=== PATIENT | female | born 1965 | race Caucasian/White ===

== ENCOUNTER 2024-03-30 06:18 | Emergency (ER) | payer SELFPAY ==
--- NOTE | ~2024-03-30 | XR_ITS ---
XR finger 2nd RT min 2V Ordering provider: Nena Romero PA-C History: . dog bite, best obtainable imgs due to pt condition . Comparison: None. FINDINGS: BONES: No definite acute fracture or dislocation. Possibility of chip fracture along the dorsal aspec t of the middle phalanx base cannot be excluded. JOINT SPACES: Normal. SOFT TISSUES: Soft tissue swelling is seen in the second finger and in the thenar eminence area. IMPRESSION: No definite acute osseous abnormality. Possibility of chip fracture in the base of the middle phalanx posteriorly cannot be excluded. Soft tissue swelling over the second finger and in the area of the thenar eminence which may indicate cellulitis. Follow-up advised. Reviewed, dictated and finalized at location A. [facility] IMPRESSION: No definite acute osseous abnormality. Possibility of chip fracture in the base of the middle phalanx posteriorly cannot be excluded. Soft tissue swelling over the second finger and in the area of the thenar emine nce which may indicate cellulitis. Follow-up advised.
[2024-03-30 06:22] VITALS: BP 191/97; PULSE 83; RESP 17; TEMP 36.6; O2SAT 100
[2024-03-30 07:50] VITALS: BP 152/108; PULSE 71; RESP 15; O2SAT 100
--- NOTE | 2024-03-30 09:21 | ED.ANIMALBIT ---
HPI - Animal Bite General Chief Complaint: Animal Bite Stated Complaint: dog bite to R index finger Time Seen by Provider: 03/30/24 09:09 Source: patient Mode of arrival: ambulatory Limitations: no limitations History of Present Illness HPI narrative: This is a 59-year-old female that presents to the emergency department after a dog bite 2 days ago. Reports the dog is up-to-date on its vaccinations. She is unsure of her last tetanus vaccination. Sustained a dog bite to her right index finger. Reports swelling and pain to the area. She has been taking tqlz-yop-[id number] medications with little relief. Denies fevers or abnormal drainage. Related Data Allergies Allergy/AdvReac Type Severity Reaction Status Date / Time No Known Allergies Allergy Verified 03/30/24 07:55 Review of Systems Review of Systems: CONSTITUTIONAL: Denies fever SKIN: Reports laceration NEUROLOGIC: Denies numbness All systems reviewed & are unremarkable except as noted in HPI and below PMFSH Past Medical History Medical History (Updated 03/30/24 @ 10:39 by Nena Romero PA-C) No active medical problems Family History Family History (System 06/03/21 @ 10:24 by Mani Larsen) Other Family history of coronary artery disease Hypertension Social History Social History (System 06/03/21 @ 10:24 by Mani Larsen) Smoking status: Never smoker Alcohol intake: current Exam Narrative: GENERAL: Well-appearing, well-nourished, and in no acute distress. HEAD: Normocephalic, atraumatic. EYES: EOMI. EXTREMITIES: Mild edema about the right index finger with decreased ROM due to pain. Small puncture wound without abnormal drainage or surrounding redness. SKIN: Warm, dry, no rash. NEURO: No focal deficits. Alert and oriented x3. PSYCH: Normal mood and affect Course Course Emergency Course: patient agrees with plan of care Vital Signs Vital signs: Vital Signs Temperature 97.8 F 03/30/24 06:22 Pulse Rate 83 03/30/24 06:22 Respiratory Rate 17 03/30/24 06:22 Blood Pressure 191/97 H 03/30/24 06:22 Pulse Oximetry 100 03/30/24 06:22 Oxygen Delivery Room Air 03/30/24 06:22 Temperature 97.8 F 03/30/24 06:22 Pulse Rate 74 03/30/24 09:43 Respiratory Rate 16 03/30/24 09:43 Blood Pressure 151/87 H 03/30/24 09:43 Pulse Oximetry 97 03/30/24 09:43 Oxygen Delivery Room Air 03/30/24 06:22 MDM - Animal Bite MDM Narrative Medical decision making narrative: Patient presents to the emergency department after a dog bite 2 days ago with pain and swelling. She is afebrile and nontoxic appearing. Mildly decreased range of motion, likely due to pain. Small puncture wound noted without any abnormal drainage. There is no erythema of the finger. X-ray shows a possible chip fracture. Patient would not allow me to put in a finger splint. Her wound was bandaged. Given information for follow-up with Hand surgery. She was given warnings to return to the ER Differential Diagnosis Differential diagnosis: Likely dog bite and other (cellulitis) Imaging Data Radiologist's impression: ITS Impressions Finger X-Ray 03/30/24 09:43 IMPRESSION: No definite acute osseous abnormality. Possibility of chip fracture in the base of the middle phalanx posteriorly cannot be excluded. Soft tissue swelling over the second finger and in the area of the thenar eminence which may indicate cellulitis. Follow-up advised. Critical Care Time Critical Care Time Critical Care Time: No Discharge Plan Discharge Clinical Impression: Dog bite Patient Disposition: Home, Self-Care Condition: Stable Instructions: Antibiotic Form, Animal Bite (ED) Additional Instructions: Return to the emergency department if you experience fever, redness or swelling of your wound, abnormal drainage from your wound, or any other symptoms that are concerning to you. Apply antibiotic ointment daily. Do not soak the wound. Clean with mild soap and water daily. Take oral antibiotics as prescribed Follow-up with primary care doctor and hand surgery Patient Language: Indonesian Prescriptions: New amoxicillin-pot clavulanate 875-125 mg tablet 1 tablet PO Q12H 10 Days Qty: 20 0RF hydrocodone-acetaminophen 5-325 mg tablet 1 tablet PO Q6H PRN (Reason: pain) Qty: 14 0RF Follow-up/Referrals: Tamara Cailxto MD [Physician] - Anuj Handley MD [Physician] - PHYSICIAN,[employer] [Primary Care Provider] - Stand Alone Forms: Work/School Release IP
[2024-03-30 09:43] VITALS: BP 151/87; PULSE 74; RESP 16; O2SAT 97
[2024-03-30] MEDS: AMOXICILLIN/CLAVULANATE K 875-125 MG TAB 1 TABLET PO (09:47)
[2024-03-30] MEDS: IBUPROFEN 600 MG TABLET PO (09:47)
[2024-03-30] MEDS: TETANUS,DIPHTHERIA,AC PERTUSSIS ADULT (0.5 ML) BOOSTRIX IM (09:47)
[2024-03-30 11:00] VITALS: BP 180/95; PULSE 89; RESP 20; TEMP 36.3; O2SAT 99
== END 2024-03-30 11:02 | disposition home or self-care (01) ==
PROVIDERS: Emergency Provider Physician Assistant
DX: S61.250A Open bite of right index finger without damage to nail, initial encounter (principal); W54.0XXA Bitten by dog, initial encounter; Z23 Encounter for immunization
CPT/HCPCS: 73140; 90471; 90715; 99283; A9270

== ENCOUNTER 2024-04-06 14:06 | Emergency (ER) | payer SELFPAY ==
[2024-04-06 14:30] VITALS: BP 160/89; PULSE 78; RESP 16; TEMP 36.8; O2SAT 100
--- NOTE | 2024-04-06 15:22 | ED.WOUNDLAC ---
HPI - Wound/Laceration General Chief Complaint: Wound/Laceration Stated Complaint: dog bite Time Seen by Provider: 04/06/24 15:22 Source: patient Mode of arrival: ambulatory Limitations: no limitations History of Present Illness HPI narrative: 51-year-old female presented requesting a return to work note. She states she sustained a dog bite to the right index finger on 03/28, she was seen on 03/30 in the emergency room and has taken the prescribed antibiotic. Denies any changes or concerns. Related Data Allergies Allergy/AdvReac Type Severity Reaction Status Date / Time No Known Allergies Allergy Verified 03/30/24 07:55 Review of Systems Review of Systems: CONSTITUTIONAL: Denies body aches, fever, chills, or sweats. EYES: Denies visual changes, redness, or discharge. ENT: Denies rhinorrhea, congestion CARDIOVASCULAR: Denies chest pain, palpitations, or edema. RESPIRATORY: Denies cough or dyspnea. GASTROINTESTINAL: Denies abdominal pain, nausea, vomiting, or diarrhea. SKIN: reports healing wound to right hand MUSCULOSKELETAL: Denies back pain, joint pain, or myalgia. NEUROLOGIC: Denies numbness, tingling, or weakness. FOR[facility]LY [facility] Past Medical History Medical History No active medical problems Family History Family History Other Family history of coronary artery disease Hypertension Social History Social History Smoking status: Never smoker Alcohol intake: current Comments At time of signature, I have reviewed and agree with nursing past medical, surgical, social and family history unless otherwise noted. Please see nursing chart for further information. There is no relevant family history pertinent to the presenting complaint Exam Narrative: GENERAL: Well-appearing ENT: Mucous membranes moist. Oropharynx without edema, erythema or lesions. NECK: Supple. No lymphadenopathy CHEST: Clear to auscultation. HEART: Regular rate and rhythm. SKIN: Warm, dry. right 2nd digit with healing puncture to proximal phalanx, no swelling or induration. CMS intact. NEURO: Alert and oriented x3. Course Course Emergency Course: Patient is aware of diagnosis, understands and agrees to treatment plan. Anticipatory guidance given. Patient agrees to follow-up as directed and is aware of reasons to seek care at the emergency department. Portions of this record may have been created with voice recognition software Level of Care: Express Care Visit Vital Signs Vital signs: Vital Signs Temperature 98.3 F 04/06/24 14:30 Pulse Rate 78 04/06/24 14:30 Respiratory Rate 16 04/06/24 14:30 Blood Pressure 160/89 H 04/06/24 14:30 Pulse Oximetry 100 04/06/24 14:30 Temperature 98.3 F 04/06/24 14:30 Pulse Rate 78 04/06/24 14:30 Respiratory Rate 16 04/06/24 14:30 Blood Pressure 160/89 H 04/06/24 14:30 Pulse Oximetry 100 04/06/24 14:30 Reviewed MDM - Wound/Laceration MDM Narrative Medical decision making narrative: Discussed physical exam findings. Advised supportive measures and signs/symptoms to go to the ER. Pt is appropriate for outpt treatment and f/u. Differential Diagnosis Differential diagnosis: Likely other (Laceration, abrasion, avulsion, dog bite, cellulitis) Discharge Plan Discharge Clinical Impression: Encounter for wound re-check Patient Disposition: Home, Self-Care Condition: Stable Instructions: Antibiotic Form, Animal Bite (ED) Additional Instructions: Watch for worsening symptoms including pain, redness, swelling, streaking, pus/drainage, fever. Go to the ER with any of these symptoms or concerns. Follow up with primary care provider as needed. Patient Language: St Helen[place] Prescriptions: No Action amoxicillin-pot clavulanate 875-125 mg tablet 1 tablet PO Q12H 10 Days Qty: 20 0RF hydrocodone-acetaminophen 5-325 mg tablet 1 tablet PO Q6H PRN (Reason: pain) Qty: 14 0RF Follow-up/Referrals: UNKNOWN,DOCTOR [Primary Care Provider] - Stand Alone Forms: Work/School Release IP Time of Disposition: 15:27
== END 2024-04-06 15:31 | disposition home or self-care (01) ==
PROVIDERS: Emergency Provider Nurse Practitioner Family
DX: Z48.00 Encounter for change or removal of nonsurgical wound dressing (principal)
CPT/HCPCS: 99211; G0463